=== PATIENT | female | born 1975 | race Caucasian/White ===

== ENCOUNTER → 2018-02-08 | Outpatient (CLI) | payer BC, OTHER ==
[~2018-02-08] MED LIST: SPRINTEC1 EACH PO
== END ==
LOC: LITH 11:29
DX: N20.0 Calculus of kidney (principal); Z98.890 Other specified postprocedural states

== ENCOUNTER 2019-09-10 11:51 | Emergency (ER) | payer BC, OTHER ==
[~2019-09-10] VITALS: Ht 162.6 cm; Wt 97.5 kg
[2019-09-10] MEDS ORDERED: SPIRONOLACTONE25 MG PO (12:00)
[2019-09-10 12:19] LABS: URINE BILIRUBIN NEGATIVE (Negative); URINE BLOOD TRACE (Negative); URINE CLARITY CLEAR; URINE COLOR YELLOW; URINE GLUCOSE-RANDOM* NEGATIVE (Negative); URINE KETONES 1+ (Negative); URINE LEUKOCYTES-REFLEX TRACE (Negative); URINE NITRITE-REFLEX NEGATIVE (Negative); URINE PROTEIN (DIPSTICK) NEGATIVE (Negative); URINE SPECIFIC GRAVITY 1.015 (1.005-1.035); URINE UROBILINOGEN 0.2 E.U./dl (0.2-1.0)
[2019-09-10 13:34] LABS: ABSOLUTE NEUTROPHILS 8.1 thou/uL (1.4-8.2); BASOPHILS 0.3 % (0.0-2.0); HEMATOCRIT 44.9 % (37.0-47.0); HEMOGLOBIN 15.1 gm/dL (12.0-15.0); LYMPHOCYTES 16.7 % (24.0-44.0); MCH 29.7 pg (26.0-34.0); MCHC 33.7 g/dL (28.0-37.0); MCV 88.2 fL (80.0-100.0); MONOCYTES 4.3 % (1.0-8.0); PLATELET COUNT 385 thou/uL (150-400); POLYS 75.7 % (36.0-66.0); RBC 5.09 mil/uL (4.20-5.00); RDW 12.6 % (10.5-14.5); WBC 10.6 thou/uL (4.0-11.0)
[2019-09-10 13:47] LABS: CALCIUM 9.1 mg/dL (8.5-10.1); CREATININE 0.7 mg/dL (0.6-1.0); POTASSIUM 3.9 mmol/L (3.5-5.1)
[2019-09-10 13:54] LABS: ALBUMIN 3.8 g/dL (3.4-5.0); TOTAL BILIRUBIN 0.6 mg/dL (<0.1-1.0); TOTAL PROTEIN 7.9 g/dL (6.4-8.2)
[2019-09-10] MEDS ORDERED: ZANTAC 150MG T150 M1 PO (14:28)
[2019-09-10 14:30] VITALS: BP 136/74
== END 2019-09-10 14:50 | disposition home or self-care (01) ==
LOC: ER 11:51
PROVIDERS: Nurse Practitioner Family
DX: K29.70 Gastritis, unspecified, without bleeding (principal); Z98.890 Other specified postprocedural states; Z88.6 Allergy status to analgesic agent